=== PATIENT | male | born 1965 | race Caucasian/White ===

== ENCOUNTER 2017-11-14 11:40 | Emergency (ER) | payer OTHER ==
[2017-11-14] MEDS ORDERED: Sodium Chloride 0.9% 10 ML Syringe FLUSH PRN (12:03)
[2017-11-14] MEDS ORDERED: Sodium Chloride 0.9% 2.5 ML Syringe FLUSH PRN (12:03)
[2017-11-14] MEDS ORDERED: Ondansetron 4 MG/2 ML SDV IVPUSH ONE (12:03)
[2017-11-14] MEDS ORDERED: HYDROmorphone 1 MG/ML Syringe IVPUSH ONE (12:03)
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
[2017-11-14 12:27] LABS: CHLORIDE,CL 102 mmol/L (98-107); SODIUM,NA 137 mmol/L (136-148)
[2017-11-14] MEDS ORDERED: Ketorolac 30 MG/ML SDV IVPUSH ONE (12:48)
[2017-11-14] MEDS: Albuterol/Ipratropium 3.0-0.5 MG/3 ML Neb Soln NEB ONE ×2 (12:55→12:57)
--- NOTE | 2017-11-15 20:50 | CR ---
EXAM DATE: 11/14/17 PATIENT'S AGE: 52 Patient: LUCRETIA LÓPEZ Facility: [place], [place] Site . Site : 1965 Study: XRay Chest [id number]/8/2018 12:17:08 PM Ordering Physician: Gina Melendrez Final Report: HISTORY: Chest pain, shortness of breath. Prior fall. TECHNIQUE: One view of the chest. COMPARISON: No prior. FINDINGS: The cardiac size is within normal limits. There is no acute lung infiltrate or pulmonary edema. No pneumothorax or pleural effusion. IMPRESSION: No acute cardiopulmonary disease. Dictated by Handy Duran MD @ 11/14/2017 12:43:16 PM Dictated by: Handy Duran MD @ 11/14/2017 12:43:21 (Electronic Signature) Report Signed by Proxy. [facility]IT[facility]
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
== END 2017-11-14 15:50 | disposition home or self-care (01) ==
LOC: MW.ED 11:40
DX: S22.42XA Multiple fractures of ribs, left side, initial encounter for closed fracture (principal); S00.11XA Contusion of right eyelid and periocular area, initial encounter; R06.89 Other abnormalities of breathing; J44.9 Chronic obstructive pulmonary disease, unspecified; Z87.891 Personal history of nicotine dependence; V27.4XXA Motorcycle driver injured in collision with fixed or stationary object in traffic accident, initial encounter
CPT/HCPCS: 36415; 71045; 71250; 80053; 85025; 94640; 96374; 96375; 99285; J1170; J1885; J2405

== ENCOUNTER 2020-07-01 06:58 | Day surgery (SDC) | payer OTHER ==
[~2020-07-01 06:58] MED LIST: Lactated Ringers 1,000 ML IV SCH; ceFAZolin 2 GM in Premix Bag 1 BAG IV SCH
[2020-07-01] MEDS ORDERED: Midazolam 1 MG/ML 2 ML SDV ONE (07:27)
[2020-07-01] MEDS ORDERED: Propofol 200 MG/20 ML SDV ONE (07:27)
[2020-07-01] MEDS ORDERED: fentaNYL 250 MCG/5 ML SDV ONE (07:28)
[2020-07-01] MEDS ORDERED: Lidocaine 2% 5 ML SDV ONE (07:30)
[2020-07-01] MEDS ORDERED: ceFAZolin 1 GM Vial ONE (07:31)
[2020-07-01] MEDS ORDERED: Bupivacaine 0.5% 30 ML SDV ONE (07:32)
--- NOTE | 2020-07-01 07:42 | PCM.PREANE ---
Preanesthetic Assessment - Anesthesia/Transfusion/Family Hx Anesthesia History: Prior Anesthesia Without Reaction Family History of Anesthesia Reaction: No - Review of Systems General: No Symptoms Pulmonary: No Symptoms Cardiovascular: No Symptoms Gastrointestinal: No Symptoms Neurological: No Symptoms Other: Reports: None - Physical Assessment NPO Status Date: 06/30/20 ASA Class: 2 Mental Status: Alert & Oriented x3 Airway Class: Mallampati = 2 Dentition: Reports: Normal Dentition ROM/Head Extension: Full Lungs: Clear to Auscultation, Normal Respiratory Effort Cardiovascular: Regular Rate, Regular Rhythm - Allergies Allergies/Adverse Reactions: Allergies Allergy/AdvReac Type Severity Reaction Status Date / Time No Known Allergies Allergy Verified 11/14/17 12:03 - Blood Blood Available: No - Anesthesia Plan Pre-Op Medication Ordered: None - Acknowledgements Anesthesia Type Planned: General Anesthesia Pt an Appropriate Candidate for the Planned Anesthesia: Yes Alternatives and Risks of Anesthesia Discussed w Pt/Guardian: Yes Pt/Guardian Understands and Agrees with Anesthesia Plan: Yes PreAnesthesia Questionnaire - Past Surgical History Musculoskeletal Surgical History: Reports: Other (See Below) Other Musculoskeletal Surgeries/Procedures:: Hand surgery - HOME MEDS Home Medications: Home Meds . [No Known Home Meds] 11/14/17 [History] - CURRENT (IN HOUSE) MEDS Current Meds: Current Medications Cefazolin Sodium/Dextrose 2 gm (/ Premix) 50 mls @ 100 mls/hr IV ONETIME FIONA Lactated Ringer's (Ringers, Lactated) 1,000 mls @ 125 mls/hr IV ASDIRECTED FIONA Discontinued Medications Fentanyl (Sublimaze) Confirm Administered Dose 250 mcg .ROUTE .STK-MED ONE Stop: 07/01/20 07:29 Midazolam HCl (Versed 1 Mg/Ml) Confirm Administered Dose 2 mg .ROUTE .STK-MED ONE Stop: 07/01/20 07:28 Propofol (Diprivan 20 Ml) Confirm Administered Dose 200 mg .ROUTE .STK-MED ONE Stop: 07/01/20 07:28
[2020-07-01] MEDS ORDERED: Dexamethasone 4 MG/ML 5 ML MDV ONE (08:19)
[2020-07-01] MEDS ORDERED: Ondansetron 4 MG/2 ML SDV ONE (08:19)
[2020-07-01] MEDS ORDERED: Ketorolac 30 MG/ML SDV ONE (09:13)
[2020-07-01] MEDS ORDERED: Morphine 10 MG/ML Syringe IVPUSH PRN (09:42)
[2020-07-01] MEDS ORDERED: Ondansetron 4 MG/2 ML SDV IVPUSH PRN (09:42)
[2020-07-01] MEDS ORDERED: Acetaminophen/HYDROcodone 325-5 MG Tab PO PRN (09:42)
--- NOTE | 2020-07-01 09:44 | PCM.OPNOTE ---
- General Post-Op/Procedure Note Date of Surgery/Procedure: 07/01/20 Operative Procedure(s): Right inguinal hernia repair with medium Bard PerFix plug and patch Pre Op Diagnosis: Reducible right inguinal hernia Post-Op Diagnosis: Same Anesthesia Technique: General LMA (ASA II) Primary Surgeon: Guero Simon Machine Tack Puller: Reema Allen Fluid Replacement, Intraop: 1,000 EBL in mLs: 10 Condition: Good Free Text/Narrative:: DICTATION [id number] CPT CODE 49634
[2020-07-01] MEDS ORDERED: Lactated Ringers 1,000 ML IV SCH (09:45)
[2020-07-01] MEDS ORDERED: Acetaminophen 1,000 MG in Premix Bag 1 BAG IV ONE (09:54)
--- NOTE | 2020-07-01 11:00 | OR ---
SURGEON: Guero Simon M.D. DATE OF PROCEDURE: 07/01/2020 OPERATION PERFORMED: Repair of right inguinal hernia with medium Bard PerFix plug and patch. PRIMARY SURGEON: Guero Simon M.D. SOW FARM TECHNICIAN: Reema Allen. PA Student. ANESTHESIA: General LMA. ASA CLASSIFICATION: II. PREOPERATIVE DIAGNOSIS: Reducible right inguinal hernia. POSTOPERATIVE DIAGNOSIS: Reducible right inguinal hernia. ESTIMATED BLOOD LOSS: 10 mL. INTRAOPERATIVE FLUID REPLACEMENT: 1000 mL of crystalloid. DESCRIPTION OF PROCEDURE: The patient was taken to the operating room and placed on the operating table in the supine position. Time-out was called for appropriate identification of the patient and procedure. The surgical site had been marked prior to the patient entering the operating room. Sequential compression boots were placed. Following satisfactory attainment of general anesthesia with placement of an LMA, the abdomen was prepped with DuraPrep solution and sterile drapes were applied. Skin incision was marked out in the right lower quadrant in the inguinal region. This was then anesthetized with 10 mL of 0.5% plain Marcaine solution. Skin incision was made and deepened through the subcutaneous tissue obtaining hemostasis with the use of electrocautery. Dissection was carried down to the external oblique fascia. This was opened in the direction of its fibers. The spermatic cord was mobilized with care taken to protect the ilioinguinal nerve and retracted out of harm's way. Once the cord was mobilized, we were able to identify the hernia sac and separate the hernia sac from the spermatic cord. The hernia sac was reduced. The defect was medium- sized. A medium Bard PerFix plug and patch were brought to the operating table and soaked in 1% Ancef solution. The plug was placed into the internal ring and secured with interrupted 0 Ethibond sutures. The patch was placed over the floor to reinforce this and secured in place with multiple interrupted 0 Ethibond sutures inferiorly and medially to Oscar's ligament, transitioning to the inguinal ligament, and superiorly to transversalis fascia. The wings were brought around the cord with care taken not to impinge tightly on the cord. This was also secured with an 0 Ethibond suture. All sutures were tied down, and the patient was given a Valsalva maneuver to 32 cm of water. The repair was solid. The wound was inspected for hemostasis and small bleeding sites were electrocoagulated. The incision was irrigated with 1% Ancef solution. The spermatic cord and ilioinguinal nerve were returned to their anatomic location. The external oblique fascia was closed with running 3-0 Vicryl. Juan Jose's fascia was closed with running 3-0 Vicryl, and the skin edges reapproximated with subcuticular 4-0 Monocryl reinforced with half-inch Steri-Strips. Sterile Tegaderm pad was placed as a dressing. Sponge, needle, and instrument counts were all correct. The scrotum was inspected after the drapes were taken down. The testicle was in proper anatomic position. The patient tolerated the procedure well. Following emergence from anesthesia and extubation, the patient was taken to recovery room in stable condition. ELIZA / SAUNDRA /[id number]
--- NOTE | 2020-07-01 12:16 | PCM.POSTAN ---
POST ANESTHESIA ASSESSMENT - MENTAL STATUS Mental Status: Alert - VITAL SIGNS Vital Signs: Last Vital Signs Temp 96.8 F L 07/01/20 10:15 Pulse 66 07/01/20 11:30 Resp 16 07/01/20 11:30 BP 99/58 L 07/01/20 11:30 Pulse Ox 96 07/01/20 11:30 - RESPIRATORY Respiratory Status: Respiratory Rate WNL, Airway Patent, O2 Saturation Stable - CARDIOVASCULAR CV Status: Pulse Rate WNL, Blood Pressure Stable - GASTROINTESTINAL GI Status: No Symptoms - POST OP HYDRATION Hydration Status: Adequate & Stable
--- NOTE | 2020-07-01 12:16 | PCM48HPAN ---
Post Anesthesia Note - EVALUATION WITHIN 48HRS OF ANESTHETIC Vital Signs in Normal Range: Yes Patient Participated in Evaluation: Yes Respiratory Function Stable: Yes Airway Patent: Yes Cardiovascular Function Stable: Yes Hydration Status Stable: Yes Pain Control Satisfactory: Yes Nausea and Vomiting Control Satisfactory: Yes Mental Status Recovered: Yes Vital Signs: Last Vital Signs Temp 96.8 F L 07/01/20 10:15 Pulse 66 07/01/20 11:30 Resp 16 07/01/20 11:30 BP 99/58 L 07/01/20 11:30 Pulse Ox 96 07/01/20 11:30
== END 2020-07-01 12:01 | disposition home or self-care (01) ==
LOC: MW.SDS 06:58
PROVIDERS: ATTEND Surgery
DX: K40.90 Unilateral inguinal hernia, without obstruction or gangrene, not specified as recurrent (principal); J44.9 Chronic obstructive pulmonary disease, unspecified; F17.210 Nicotine dependence, cigarettes, uncomplicated; K42.9 Umbilical hernia without obstruction or gangrene; Z98.890 Other specified postprocedural states; Z82.5 Family history of asthma and other chronic lower respiratory diseases
CPT/HCPCS: 49505; A9270; C1781; J0131; J0690; J1100; J1885; J2250; J2270; J2704; J3010; J3490; J7120; 00830; J2405

== ENCOUNTER 2024-06-15 10:58 | Inpatient (IN) | payer OTHER ==
[2024-06-15] MEDS ORDERED: Sodium Chloride 0.9% 2.5 ML Syringe FLUSH PRN (11:13)
[2024-06-15] MEDS ORDERED: Sodium Chloride 0.9% 10 ML Syringe FLUSH PRN (11:13)
[2024-06-15] MEDS ORDERED: Diltiazem 25 MG/5 ML SDV IVPUSH ONE (11:16)
[2024-06-15] MEDS: Albuterol/Ipratropium 3.0-0.5 MG/3 ML Neb Soln NEB ONE ×2 (11:22→15:53)
[2024-06-15 11:33] LABS: HEMATOCRIT 48.4 % (42.0-52.0); HEMOGLOBIN 16.3 g/dL (14.0-18.0); MEAN CORPUSCULAR HEMOGLOBIN 30.4 pg (28.0-32.0); MEAN CORPUSCULAR HGB CONC 33.7 g/dL (32.0-36.0); MEAN CORPUSCULAR VOLUME 90.1 fL (83.0-99.0); MEAN PLATELET VOLUME 8.8 fL (9.4-12.4); PLATELET COUNT,PLT 197 K/uL (150-400); RED BLOOD CELL COUNT 5.37 M/uL (4.52-5.90); WHITE BLOOD CELL COUNT,WBC 5.39 K/uL (3.9-11.3)
[2024-06-15 11:48] LABS: INR 1.03 (0.86-1.11)
[2024-06-15 11:59] LABS: EOSINOPHILS ABSOLUTE MAN 0.05 K/uL (0.00-0.45); EOSINOPHILS PERCENT MAN 1 % (0-6); LYMPHOCYTES ABSOLUTE MAN 1.35 K/uL (1.00-4.80); LYMPHOCYTES PERCENT MAN 25 % (24-44); MONOCYTES ABSOLUTE MAN 0.54 K/uL (0.00-0.80); MONOCYTES PERCENT MAN 10 % (0-8); SEG NEUTROPHILS ABSOLUTE MAN 3.45 K/uL (1.80-7.70); SEG NEUTROPHILS PERCENT MAN 64 % (41-71)
[2024-06-15 12:16] LABS: ALANINE AMINOTRANSFERASE,ALT 22 IU/L (14-63); ALBUMIN 3.3 g/dL (3.4-5.0); ALKALINE PHOSPHATASE 60 U/L (46-116); ASPARTATE AMNIOTRANSFERASE,AST 17 IU/L (15-37); BILIRUBIN TOTAL 0.6 mg/dL (0.2-1.0); BLOOD UREA NITROGEN,BUN 15 mg/dL (7.0-18.0); CALCIUM 8.9 mg/dL (8.5-10.1); CARBON DIOXIDE,CO2 33.3 mmol/L (21.0-32.0); CHLORIDE,CL 101 mmol/L (98-107); CREATININE 0.9 mg/dL (0.8-1.3); EST CRCL DRUG DOSING (CG) 85.22 mL/min; GLUCOSE RANDOM 115 mg/dL (74-106); LIPASE 42 U/L (16-77); POTASSIUM,K 3.9 mmol/L (3.5-5.1); PRO B-TYPE NATRIUR PEPT,BNPPRO 18 pg/mL (0-125); PROTEIN TOTAL,TP 7.2 g/dL (6.4-8.2); SODIUM,NA 140 mmol/L (136-148)
[2024-06-15 12:17] LABS: A/G RATIO 0.9 (0.9-1.6); ESTIMATED GFR 97 mL/min (>60)
[2024-06-15] MEDS: methylPREDNISolone Sodium Succinate 125 MG/2 ML SDV IVPUSH ONE (15:55)
[2024-06-15] MEDS: Iopamidol 755 MG/ML 500 ML Multipack Bottle IVPUSH STA (17:28)
[2024-06-15] MEDS: Sodium Chloride 0.9% 1,000 ML IV ONE (17:29)
[2024-06-15] MEDS: cefTRIAXone 2 GM in Sodium Chloride 0.9% 50 ML IV ONE (17:30)
[2024-06-15] MEDS: Azithromycin 500 MG in Sodium Chloride 0.9% 250 ML IV ONE (18:38)
[2024-06-15] MEDS ORDERED: Ondansetron 4 MG Tab.DIS PO PRN (18:45)
[2024-06-15] MEDS ORDERED: Polyethylene Glycol 3350 Powder 17 GM Packet PO PRN (18:45)
[2024-06-15] MEDS ORDERED: Albuterol/Ipratropium 3.0-0.5 MG/3 ML Neb Soln NEB PRN (18:45)
[2024-06-15] MEDS ORDERED: Acetaminophen 325 MG Tab PO PRN (18:45)
[2024-06-15] MEDS ORDERED: Sennosides/Docusate Sodium 50-8.6 MG Tab PO PRN (18:45)
[2024-06-15] MEDS ORDERED: Ibuprofen 600 MG Tab PO PRN (18:45)
[2024-06-15] MEDS ORDERED: Melatonin 3 MG Tab PO PRN (18:45)
[2024-06-16] MEDS: Albuterol/Ipratropium 3.0-0.5 MG/3 ML Neb Soln NEB SCH (00:12)
[2024-06-16 06:55] LABS: BASOPHILS ABSOLUTE AUTO 0.01 K/uL (0.00-0.20); BASOPHILS PERCENT AUTO 0.3 % (0.0-1.0); HEMATOCRIT 42.3 % (42.0-52.0); HEMOGLOBIN 14.5 g/dL (14.0-18.0); LYMPHOCYTES ABSOLUTE AUTO 0.83 K/uL (1.00-4.80); LYMPHOCYTES PERCENT AUTO 26.1 % (24.0-44.0); MEAN CORPUSCULAR HEMOGLOBIN 30.6 pg (28.0-32.0); MEAN CORPUSCULAR HGB CONC 34.3 g/dL (32.0-36.0); MEAN CORPUSCULAR VOLUME 89.2 fL (83.0-99.0); MEAN PLATELET VOLUME 9.3 fL (9.4-12.4); MONOCYTES ABSOLUTE AUTO 0.13 K/uL (0.00-0.80); MONOCYTES PERCENT AUTO 4.1 % (0.0-8.0); NEUTROPHILS ABSOLUTE AUTO 2.21 K/uL (1.80-7.70); NEUTROPHILS PERCENT AUTO 69.5 % (41.0-71.0); PLATELET COUNT,PLT 207 K/uL (150-400); RED BLOOD CELL COUNT 4.74 M/uL (4.52-5.90); WHITE BLOOD CELL COUNT,WBC 3.18 K/uL (3.9-11.3)
[2024-06-16 07:14] LABS: A/G RATIO 0.8 (0.9-1.6); ALBUMIN 2.8 g/dL (3.4-5.0); BILIRUBIN TOTAL 0.5 mg/dL (0.2-1.0); CALCIUM 8.6 mg/dL (8.5-10.1); CARBON DIOXIDE,CO2 26.8 mmol/L (21.0-32.0); CREATININE 0.8 mg/dL (0.8-1.3); EST CRCL DRUG DOSING (CG) 95.32 mL/min; POTASSIUM,K 4.2 mmol/L (3.5-5.1); PROTEIN TOTAL,TP 6.4 g/dL (6.4-8.2)
[2024-06-16] MEDS: Sodium Chloride 0.9% 1,000 ML IV SCH (09:31)
[2024-06-16] MEDS: methylPREDNISolone Sodium Succinate 40 MG/1 ML SDV IVPUSH SCH (09:32)
[2024-06-16] MEDS: Pantoprazole 40 MG Tab.CR PO SCH (09:32)
[2024-06-16] MEDS: Nicotine 14 MG/24 Hr Patch TRDERM SCH (09:35)
[2024-06-16] MEDS: cefTRIAXone 1 GM in Sodium Chloride 0.9% 50 ML IV SCH (18:22)
[2024-06-16] MEDS: Cefdinir 300 MG Cap PO SCH (20:35)
[2024-06-17 06:09] LABS: BASOPHILS ABSOLUTE AUTO 0.01 K/uL (0.00-0.20); BASOPHILS PERCENT AUTO 0.1 % (0.0-1.0); HEMATOCRIT 41.7 % (42.0-52.0); HEMOGLOBIN 14.3 g/dL (14.0-18.0); IMMATURE GRAN ABSOLUTE AUTO 0.03 K/uL (0.00-0.05); IMMATURE GRAN PERCENT AUTO 0.3 % (0.0-0.4); LYMPHOCYTES ABSOLUTE AUTO 2.07 K/uL (1.00-4.80); LYMPHOCYTES PERCENT AUTO 19.6 % (24.0-44.0); MEAN CORPUSCULAR HEMOGLOBIN 30.8 pg (28.0-32.0); MEAN CORPUSCULAR HGB CONC 34.3 g/dL (32.0-36.0); MEAN CORPUSCULAR VOLUME 89.7 fL (83.0-99.0); MEAN PLATELET VOLUME 8.8 fL (9.4-12.4); MONOCYTES ABSOLUTE AUTO 0.82 K/uL (0.00-0.80); MONOCYTES PERCENT AUTO 7.8 % (0.0-8.0); NEUTROPHILS ABSOLUTE AUTO 7.62 K/uL (1.80-7.70); NEUTROPHILS PERCENT AUTO 72.2 % (41.0-71.0); PLATELET COUNT,PLT 257 K/uL (150-400); RED BLOOD CELL COUNT 4.65 M/uL (4.52-5.90); WHITE BLOOD CELL COUNT,WBC 10.55 K/uL (3.9-11.3)
[2024-06-17 06:48] LABS: A/G RATIO 0.9 (0.9-1.6); ALBUMIN 2.8 g/dL (3.4-5.0); BILIRUBIN TOTAL 0.5 mg/dL (0.2-1.0); CALCIUM 8.4 mg/dL (8.5-10.1); CARBON DIOXIDE,CO2 25.5 mmol/L (21.0-32.0); CREATININE 0.8 mg/dL (0.8-1.3); EST CRCL DRUG DOSING (CG) 95.32 mL/min; POTASSIUM,K 3.6 mmol/L (3.5-5.1)
[2024-06-17] MEDS: Potassium Chloride 20 MEQ Tab.ER PO ONE (12:52)
[2024-06-17] MEDS: guaiFENesin 600 MG Tab.ER PO SCH (12:59)
[2024-06-18 05:54] LABS: BASOPHILS ABSOLUTE AUTO 0.02 K/uL (0.00-0.20); BASOPHILS PERCENT AUTO 0.2 % (0.0-1.0); EOSINOPHILS ABSOLUTE AUTO 0.08 K/uL (0.00-0.45); HEMATOCRIT 45.7 % (42.0-52.0); HEMOGLOBIN 15.1 g/dL (14.0-18.0); IMMATURE GRAN ABSOLUTE AUTO 0.03 K/uL (0.00-0.05); IMMATURE GRAN PERCENT AUTO 0.4 % (0.0-0.4); LYMPHOCYTES ABSOLUTE AUTO 2.14 K/uL (1.00-4.80); LYMPHOCYTES PERCENT AUTO 26.4 % (24.0-44.0); MEAN CORPUSCULAR VOLUME 90.7 fL (83.0-99.0); MEAN PLATELET VOLUME 8.9 fL (9.4-12.4); MONOCYTES ABSOLUTE AUTO 0.74 K/uL (0.00-0.80); MONOCYTES PERCENT AUTO 9.1 % (0.0-8.0); NEUTROPHILS ABSOLUTE AUTO 5.09 K/uL (1.80-7.70); NEUTROPHILS PERCENT AUTO 62.9 % (41.0-71.0); PLATELET COUNT,PLT 295 K/uL (150-400); RED BLOOD CELL COUNT 5.04 M/uL (4.52-5.90)
[2024-06-18 06:18] LABS: A/G RATIO 0.9 (0.9-1.6); ALBUMIN 3.1 g/dL (3.4-5.0); BILIRUBIN TOTAL 0.7 mg/dL (0.2-1.0); CALCIUM 8.9 mg/dL (8.5-10.1); CARBON DIOXIDE,CO2 26.3 mmol/L (21.0-32.0); CREATININE 0.9 mg/dL (0.8-1.3); EST CRCL DRUG DOSING (CG) 84.73 mL/min; POTASSIUM,K 4.1 mmol/L (3.5-5.1); PROTEIN TOTAL,TP 6.5 g/dL (6.4-8.2)
== END 2024-06-18 10:30 | disposition home or self-care (01) | DRG 192 ==
LOC: MW.ED 10:58 → MW.MS 18:27
PROVIDERS: ADMIT Family Medicine; ATTEND Family Medicine
DX: J44.1 Chronic obstructive pulmonary disease with (acute) exacerbation (principal); F17.210 Nicotine dependence, cigarettes, uncomplicated; J43.2 Centrilobular emphysema; H54.7 Unspecified visual loss; Z87.81 Personal history of (healed) traumatic fracture; Z98.890 Other specified postprocedural states; Z71.6 Tobacco abuse counseling
CPT/HCPCS: 36415; 71045; 71045-26; 71275; 71275-26; 80053; 83605; 83690; 83880; 84484; 85025; 85379; 85610; 87040; 87428-QW; 93005; 93010; 94640; 96374; 99283; 99285-25; A9270-GY; J0456; J0696; J2919; J3490; J7030; J7050; J7620-GY; Q9967